=== PATIENT | male | born 1980 | race Caucasian/White ===

== ENCOUNTER 2018-04-16 16:09 | Emergency (ER) | payer OTHER ==
[2018-04-16 16:17] VITALS: BP 91/61; PULSE 79; TEMP 98.2; BMI 27.2
--- NOTE | 2018-04-16 16:40 | PDOC ---
Attending Attestation - HPI HPI: 04/16/18 18:12 The patient is a 37 year old male with no significant past medical history who presents to the ED s/p fall earlier today. Patient states he was hanging [place] lights outside of his house when he stepped off the handle and fell onto his left side. Patient comes into the ED with an obvious deformity to the left pointer finger and distal radius. He also reports pain to his left shoulder , wrist and hand. Denies head injury. Denies LOC. - Physicial Exam PE: 04/16/18 18:13 Constitutional: Awake, alert, oriented. No acute distress. Head: Normocephalic. Atraumatic Eyes: PERRL. EOMI. Conjunctivae are not pale. ENT: Mucous membranes are moist and intact. Posterior pharynx without exudates or erythema. Uvula midline. Neck: Supple. Full ROM. No lymphadenopathy. Cardiovascular: Regular rate. Regular rhythm. S1, S2 regular. Distal pulses are 2+ and symmetric. Pulmonary/Chest: No evidence of respiratory distress. Clear to auscultation bilaterally No wheezing, rales or rhonchi. Abdominal: Soft and non-distended. There is no tenderness. No rebound, guarding or rigidity. No organomegaly. No palpable masses. Good bowel sounds. Back: No CVA tenderness. Musculoskeletal: + deformity to the left pointer finger, appears to be dislocated at the PIP. neurovascularly intact, sensations intact. Able to move the rest of his fingers, able to move pointer finger with pain. Tenderness along the extensor surface on the left. Distal radius tenderness on the left. No edema. No cyanosis. No clubbing. Nocalf tenderness. Radial/pedal pulses are intact and 2+ bilaterally Skin: Skin is warm and dry. No petechiae. No purpura. Neurological: Alert and oriented to person, place, and time. Cranial nerves II -XII are grossly intact. Normal speech. Strength is grossly symmetric. No sensory deficits. Psychiatric: Good eye contact. Normal interaction, affect and behavior. <Zheng Angeles - Last Filed: 04/16/18 18:12> - Resident Resident Name: Myke Culver - ED Attending Attestation I have performed the following: I have examined & evaluated the patient, The case was reviewed & discussed with the resident, I agree w/resident's findings & plan, Exceptions are as noted - Medical Decision Making 04/16/18 16:40 I, Dr. Violeta Moore DO, attest that this document has been prepared under my direction and personally reviewed by me in its entirety. I further attest, that it accurately reflects all work, treatment, procedures and medical decision -making performed by me. 04/16/18 18:05 a/p: 37yo male with L UE injury after hanging lights -will obtain xrays -deformity to L pointer finger -swelling to L distal radius -will send for xrays of the LUE -no open abrasions/lacerations -will monitor and reassess 04/16/18 18:06 no distal radius fx seen on xray L pointer finger PIP dislocation resident discussed the case with orthopedics who agrees with plan to splint and give follow up in the office 04/16/18 18:29 resident reduced the joint with ease will obtain post reduction film splinted also the wrist secondary to snuff box ttp then stable for d/c to home and follow up with hand/ortho 04/16/18 19:15 post reduction film finger is in place stable for dc to home <Violeta Moore - Last Filed: 04/16/18 19:16> Attestations - Attestations 04/16/18 18:13 Documentation prepared by Zheng Angeles, acting as medical receptionist medical assistant for Violeta Moore DO <Zheng Angeles - Last Filed: 04/16/18 18:12>
--- NOTE | 2018-04-16 16:45 | PDOC ---
History of Present Illness - General Chief Complaint: Injury Stated Complaint: DISLOCATED FINGER Time Seen by Provider: 04/16/18 16:33 - History of Present Illness Initial Comments: The patient is a 37M w/ no reported PMH who presents for evaluation s/p 4ft fall on to L hand. Denies LOC. Reports subsequent L index finger deformity, L wrist pain, and L elbow pain. Patient unable to flex index finger. Moderate pain with wrist flexion and extension. Mild pain with elbow palpation but no painful ROM. Patient denies history of previous injury LUE. Denies recent illness, fevers/chills, MONTERO, vision changes, chest pain, abdominal pain, N/V/C/D 04/16/18 23:03 Past History - Past Medical History Allergies/Adverse Reactions: Allergies Allergy/AdvReac Type Severity Reaction Status Date / Time No Known Allergies Allergy Verified 04/16/18 16:13 COPD: No - Immunization History Immunization Up to Date: Yes - Suicide/Smoking/Psychosocial Hx Smoking History: Never smoked Hx Alcohol Use: No Drug/Substance Use Hx: No Substance Use Type: None Review of Systems - Review of Systems Able to Perform ROS?: Yes Comments:: GENERAL/CONSTITUTIONAL: No fever or chills. No weakness HEAD, EYES, EARS, NOSE AND THROAT: No change in vision. No ear pain or discharge. No sore throat CARDIOVASCULAR: No chest pain or shortness of breath GASTROINTESTINAL: No nausea, vomiting, diarrhea or constipation GENITOURINARY: No dysuria, frequency, or change in urination MUSCULOSKELETAL: per HPI SKIN: No rash NEUROLOGIC: No headache, vertigo, loss of consciousness, or change in strength/ sensation ENDOCRINE: No increased thirst. No abnormal weight change HEMATOLOGIC/LYMPHATIC: No anemia, easy bleeding, or history of blood clots ALLERGIC/IMMUNOLOGIC: No hives or skin allergy 04/16/18 23:21 Is the patient limited [place] proficient: No *Physical Exam - Vital Signs Last Vital Signs Temp Pulse Resp BP Pulse Ox 98.2 F 79 16 91/61 100 04/16/18 16:14 04/16/18 16:14 04/16/18 16:14 04/16/18 16:14 04/16/18 16:14 - Physical Exam Comments: GENERAL: Awake, alert, and fully oriented, in no acute distress HEAD: No signs of trauma, normocephalic, atraumatic EYES: PERRLA, EOMI, sclera anicteric, conjunctiva clear ENT: Hearing grossly normal, nares patent, oropharynx clear without exudates LUNGS: No distress, speaks full sentences, clear to auscultation bilaterally HEART: Regular rate and rhythm, normal S1 and S2, no murmurs appreciated, peripheral pulses normal and equal bilaterally ABDOMEN: Soft, nontender, normoactive bowel sounds. No guarding, no rebound NEUROLOGICAL: Cranial nerves II through XII grossly intact. Normal speech, normal gait, no focal sensorimotor deficits SKIN: Warm, Dry, normal turgor, no rashes or lesions noted RUE: Inspection: No erythema or ecchymosis. No tenderness, no obvious abnormalities, no open wounds. Compartments soft and compressible, pain within proportion, no pain to passive stretch Sensation: sensation present to light touch m/r/u n Motor: intact AIN/PIN/Ulnar in hand; 5/5 Wrist flex/ext; _55 Elbow flex/ext; 5/ 5 Shoulder ABd,Flex Vascular: 2+ radial pulse palpated, BCR all fingers <2 sec. LUE: Inspection: Index PIP volar dislocation; NV intact; inability to flex distal to MCP; Snuffbox TTP; decreased ROM at wrist 2/2 pain; No erythema or ecchymosis. No open wounds. Compartments soft and compressible Sensation: sensation present to light touch m/r/u n Motor: intact AIN/PIN/Ulnar in hand; 4/5 Wrist flex/ext 2/2 pain; 5/5 Elbow flex /ext; 5/5 Shoulder ABd,Flex Vascular: 2+ radial pulse palpated, BCR all fingers <2 sec. 04/16/18 23:22 Moderate Sedation - Procedure Monitoring Vital Signs: Procedure Monitoring Vital Signs Temperature 98.2 F 04/16/18 16:14 Pulse Rate 79 04/16/18 16:14 Respiratory Rate 16 04/16/18 16:14 Blood Pressure 91/61 04/16/18 16:14 O2 Sat by Pulse Oximetry (%) 100 04/16/18 16:14 ED Treatment Course - RADIOLOGY Radiology Studies Ordered: Category Date Time Status ELBOW-LEFT [RAD] Stat Radiology 04/16/18 16:43 Ordered FOREARM- LEFT [RAD] Stat Radiology 04/16/18 16:43 Ordered WRIST W/HAND-LEFT* [RAD] Stat Radiology 04/16/18 16:43 Ordered Medical Decision Making - Medical Decision Making The patient is a 37M who presents for evaluation s/p 4ft fall for evaluation of L index finger dislocation, wrist pain, and elbow pain. L hand, wrist, forearm, and elbow XR Digital block for pain 04/16/18 17:09 L index PIP volar dislocation 04/16/18 17:20 S/p reduction, pt neurovascularly intact, cap refill < 2 sec Will give ortho f/u Patient counseled on splint care, discharge instructions, and return precautions Post reduction film with improved alignment Dispo: home 04/16/18 18:31 *DC/Admit/Observation/Transfer Diagnosis at time of Disposition: Dislocation of left index finger Qualifiers: Encounter type: initial encounter Qualified Code(s): S63.251A - Unspecified dislocation of left index finger, initial encounter - Discharge Dispostion Disposition: HOME Condition at time of disposition: Improved Decision to Admit order: No - Referrals Referrals: William Griffith MD [Staff Physician] - Eamon Perez [Primary Care Provider] - Yunior Kamara MD [Staff Physician] - - Patient Instructions Printed Discharge Instructions: How to Use a Sling, DI for Finger Dislocation - Post Discharge Activity Forms/Work/School Notes: Back to Work
== END 2018-04-16 19:36 | disposition home or self-care (01) ==
LOC: JER 16:09
PROC: 0RSXXZZ Reposition Left Finger Phalangeal Joint, External Approach (ICD-10-PCS; principal; 2018-04-16)
PROC: 2W3KX1Z Immobilization of Left Finger using Splint (ICD-10-PCS; 2018-04-16)
DX: S63.281A Dislocation of proximal interphalangeal joint of left index finger, initial encounter (principal); W11.XXXA Fall on and from ladder, initial encounter; Y93.89 Activity, other specified; Y92.098 Other place in other non-institutional residence as the place of occurrence of the external cause; Y99.8 Other external cause status
CPT/HCPCS: 73070-TC-LT-FY; 73090-TC-LT-FY; 73110-TC-LR-FY; 73130-TC-LT-FY; 99281-25